=== PATIENT | male | born 1970 | race Two or more races ===

== ENCOUNTER 2020-09-05 15:13 | Emergency (ER) | payer OTHER ==
[~2020-09-05] VITALS: Ht 177.8 cm; Wt 105.7 kg
[2020-09-05 17:59] VITALS: BP 145/95
[2020-09-05] MEDS ORDERED: cefTRIAXone SOD 1,000 MG VL IM ONE (20:15)
[2020-09-05] MEDS ORDERED: TETANUS-DIPTH-ACEL PERTUSSIS 0.5ML SYR Tdap IM ONE (20:15)
[2020-09-05] MEDS ORDERED: LIDOCAINE 1% HCL (LOCAL ANESTH.) INJ 20ML MDV IJ ONE (20:45)
== END 2020-09-05 21:23 | disposition home or self-care (01) ==
LOC: ER 15:13
DX: S61.211A Laceration without foreign body of left index finger without damage to nail, initial encounter (principal); E11.9 Type 2 diabetes mellitus without complications; I10 Essential (primary) hypertension; W26.9XXA Contact with unspecified sharp object(s), initial encounter; Y93.89 Activity, other specified; Y92.89 Other specified places as the place of occurrence of the external cause; Y99.8 Other external cause status
CPT/HCPCS: 12001; 73120; 90471; 90715; 96372; 99284; J0696; J2001

== ENCOUNTER 2023-01-03 14:04 | Emergency (ER) | payer OTHER ==
[~2023-01-03] VITALS: Ht 180.3 cm; Wt 95.8 kg
[2023-01-03 15:37] VITALS: BP 140/94; PULSE 97; RESP 18; TEMP 98.2; O2SAT 97
[2023-01-03] MEDS ORDERED: SODIUM CHLORIDE 0.9% 1,000 ML IV ONE (16:00)
[2023-01-03] MEDS ORDERED: KETOROLAC TROMETH 30 MG/ML 1ML VIAL IV ONE (16:00)
[2023-01-03 16:18] LABS: Basophils # (auto) 0 10 ^3/uL (0-0.2); Basophils % (auto) 0.4 % (0.0-2.0); Eosinophils # (auto) 0 10 ^3/uL (0-0.8); Eosinophils % (auto) 0.3 % (0.0-7.0); Hematocrit 48.7 % (41.0-53.0); Hemoglobin 16.5 g/dL (13.5-17.5); Lymphocytes # (auto) 1.6 10 ^3/uL (0.4-5.4); Lymphocytes % (auto) 16.7 % (10.0-50.0); Mean Corpuscular Hemoglobin 29.8 pg (28.0-32.0); Mean Corpuscular Volume 87.7 fL (80.0-100.0); Monocytes # (auto) 0.6 10 ^3/uL (0-1.3); Neutrophils # (auto) 7.5 10 ^3/uL (1.6-8.6); Neutrophils % (auto) 76.6 % (37.0-80.0); Nucleated Red Blood Cells % 0.1 %; Red Blood Cells 5.55 10^6/uL (4.5-5.90); White Blood Cell 9.7 10^3/uL (4.4-10.8)
[2023-01-03 16:45] LABS: Albumin 3.7 g/dL (3.4-5.0); Calcium 9.3 mg/dL (8.5-10.1); Potassium 3.9 mmol/L (3.5-5.1)
[2023-01-03 16:48] LABS: BUN/Creatinine Ratio 13.3 (10.0-20.0); Bilirubin, Total 1.2 mg/dL (0.2-1.0); Total Protein 8.3 g/dL (6.4-8.2)
[2023-01-03] MEDS ORDERED: OSEL75CA5 PO (17:10)
[2023-01-03] MEDS ORDERED: LOPE7.5C PO (17:10)
== END 2023-01-03 17:26 | disposition home or self-care (01) ==
LOC: ER 14:04
DX: M79.10 Myalgia, unspecified site (principal); J10.1 Influenza due to other identified influenza virus with other respiratory manifestations; E11.9 Type 2 diabetes mellitus without complications; I10 Essential (primary) hypertension; Z20.822 Contact with and (suspected) exposure to COVID-19
CPT/HCPCS: 36415; 71045; 80053; 82962; 85025; 87426; 87804; 96361; 96374; 99284; J1885; J7030

== ENCOUNTER 2023-11-27 10:19 | Emergency (ER) | payer OTHER ==
[~2023-11-27] VITALS: Ht 177.8 cm; Wt 84.1 kg
[~2023-11-27 10:19] MED LIST: LOPE7.5C PO; OSEL75CA5 PO
[2023-11-27 11:06] VITALS: BP 139/92; PULSE 100; RESP 16; TEMP 99.6; O2SAT 99
[2023-11-27] MEDS: KETOROLAC TROMETH 60MG/2ML VIAL IM ONE (11:30)
[2023-11-27] MEDS ORDERED: BACL10TA PO (11:46)
[2023-11-27] MEDS ORDERED: IBUP-1456 PO (11:46)
== END 2023-11-27 11:51 | disposition home or self-care (01) ==
LOC: ER 10:19
DX: S29.011A Strain of muscle and tendon of front wall of thorax, initial encounter (principal); I10 Essential (primary) hypertension; E11.9 Type 2 diabetes mellitus without complications; Z79.899 Other long term (current) drug therapy; W18.39XA Other fall on same level, initial encounter; Y93.89 Activity, other specified; Y92.89 Other specified places as the place of occurrence of the external cause; Y99.8 Other external cause status
CPT/HCPCS: 71101; 96372; 99283; J1885

== ENCOUNTER 2024-05-19 07:32 | Emergency (ER) | payer OTHER, MEDICARE ==
[~2024-05-19] VITALS: Ht 180.3 cm; Wt 84.0 kg
[~2024-05-19 07:32] MED LIST changes: +BACL10TA PO; +IBUP-1456 PO
[2024-05-19 09:11] LABS: COVID19 ANTIGEN SOFIA FIA NEGATIVE (NEGATIVE); Rapid Influenza B Negative (Negative)
[2024-05-19 09:14] LABS: Rapid Influenza A Positive (Negative)
[2024-05-19 09:20] VITALS: BP 120/85; PULSE 105; RESP 18; O2SAT 98
[2024-05-19] MEDS ORDERED: OSEL75CA5 PO (09:21)
[2024-05-19] MEDS ORDERED: PROM1SOL4 PO (09:21)
[2024-05-19] MEDS ORDERED: IBUP-1455 PO (09:21)
--- NOTE | 2024-05-19 09:22 | ED.PDOC ---
History of Present Illness HPI Comments 53-year-old male complaining of fever and chills and headache which tender today. Patient states his son and his had similar symptoms last week. Nothing makes it better, nothing makes it worse. Chief Complaint: Flu like Time Seen by MD: 08:04 Reviewed Notes: Nurses Notes Information Source: Patient Past Medical History PAST MEDICAL HISTORY: DM, HTN Surgical History: Denies all surgeries Family History Family History: Reviewed,noncontributory to illness Social History Smoker: Non-Smoker Alcohol: Denies ETOH Use Drugs: Denies Drug Use Lives In: Home Constitutional: Fatigue, Fever EENTM: No Symptoms Reported Respiratory: Cough Cardiovascular: No Symptoms Reported Gastrointestinal: No Symptoms Reported Genitourinary: No Symptoms Reported Neurological: Headache Musculoskeletal: No Symptoms Reported Integumentary: No Symptoms Reported Allergic/Immunocompromised: others Hematologic/Lymphatic: No Symptoms Reported Endocrine: No Symptoms Reported Psychiatric: No symptoms Reported All Other Systems: Reviewed and Negative Physical Exam General Appearance: No Apparent Distress, Normal HEENT: Normal ENT Inspection, Pharynx Normal, TMs Normal Neck: Full Range of Motion, Non-Tender, Normal, Normal Inspection Respiratory: Chest Non-Tender, Lungs Clear, No Accessory Muscle Use, No Respiratory Distress, Normal Breath Sounds Cardiovascular: No Edema, No JVD, No Murmur, No Gallop, Normal Peripheral Pulses, Regular Rate/Rhythm Breast Exam: Deferred Gastrointestinal: No Organomegaly, Non Tender, No Pulsatile Mass, Normal Bowel Sounds, Soft Genitalia: Deferred Pelvic: Deferred Rectal: Deferred Extremities: No calf tenderness, Normal capillary refill, Normal inspection, Normal range of motion, Non-tender, No pedal edema Musculoskeletal : Apperance: Normal Neurologic: Alert, shop lead II-XII nml as Tested, No Motor Deficits, Normal Affect, Normal Mood, No Sensory Deficits Cerebellar Function: Normal Reflexes: Normal Skin: Dry, Normal Color, Warm Lymphatic: No Adenopathy Was a procedure done? Was a procedure done?: No Fever Differential Dx Differential Diagnosis: Dehydration, Influenza, Pneumonia, Pneumonitis, Pyelonephritis, Respiratory Failure X-Ray, Labs, Meds, VS Vital Signs Date Time Temp Pulse Resp B/P (MAP) Pulse Ox O2 Delivery O2 Flow Rate FiO2 05/19/24 08:13 99.4 105 16 149/94 (112) 100 99.4 05/19/24 08:13 105 16 100 Room Air 05/19/24 07:58 99.4 105 16 149/94 (112) 100 Lab Test 05/19/24 08:30 Range/Units Influenza Type A Antigen Positive Negative Influenza Type B Antigen Negative Negative SARS-CoV-2 Antigen (Rapid) Negative NEGATIVE X-Ray, Labs, Meds, VS Comment Imaging: X-rays and CT scans were reviewed and interpreted by this provider, imaging shows no fractures and no pathological disease. Pending radiology review. Laboratory: Labs reviewed and interpreted by this provider. No significant abno rmalities noted. Patient has prior medical visits reviewed. Med reconciliation performed Vital signs reviewed Time of 1ST Reevaluation: 09:21 Reevaluation 1ST: Improved Patient Education/Counseling: Diagnosis, Treatment, Need For Follow Up (Patient advised to follow-up in the emergency room in the next 24 to 48 hours if symptoms do not improve. Advised follow-up with PCP in the next 3 to 5 days. Patient verbalized understanding. ) Family Education/Counseling: Diagnosis, Treatment Departure 1 Departure Time of Disposition: 09:19 Impression: Primary Impression: Influenza A Disposition: 01 HOME / SELF CARE / HOMELESS Condition: Fair e-Prescriptions Promethazine-Dm (Promethazine Dm 6.25-15 mg/5Ml) 1 Jaclyn Jaclyn 5 ML PO TID PRN, #240 ML Prov: DMITRIY REDDY 05/19/24 Ibuprofen Micronized (Ibuprofen) 800 Mg Tab 800 MG PO TID PRN, #40 TAB Prov: DMITRIY REDDY 05/19/24 Oseltamivir Phosphate (Tamiflu) 75 Mg Cap 1 CAP PO BID for 5 Days, #10 CAP Prov: DMITRIY REDDY 05/19/24 Discharged With: Self Critical Care Note Critical Care Time?: No Stability Stability form required: No Heart Score Heart Score: Heart Score Response (Comments) Value History N/A 0 EKG N/A 0 Age N/A 0 Risk Factors N/A 0 Troponin N/A 0 Total 0 DMITRIY REDDY May 19, 2024 09:22
[2024-05-19] MEDS: ACETAMINOPHEN 500 MG TAB or CAP PO ONE (09:26)
[2024-05-19 09:48] VITALS: TEMP 100.9
== END 2024-05-19 09:49 | disposition home or self-care (01) ==
LOC: ER 07:32
DX: J10.1 Influenza due to other identified influenza virus with other respiratory manifestations (principal); I10 Essential (primary) hypertension; E11.9 Type 2 diabetes mellitus without complications; Z20.822 Contact with and (suspected) exposure to COVID-19
CPT/HCPCS: 36415; 87426; 87804